=== PATIENT | female | born 1990 | race Caucasian/White ===

== ENCOUNTER → 2022-04-21 | Outpatient (CLI) | payer OTHER | END | disposition home or self-care (01) | LOC: LAB 11:52 → LAB SHORT 11:52 | DX: O09.893 Supervision of other high risk pregnancies, third trimester (principal) | CPT/HCPCS: 87081; 87150 ==

== ENCOUNTER 2022-05-13 22:47 | Inpatient (IN) | payer OTHER ==
[~2022-05-13] VITALS: Ht 167.6 cm; Wt 97.3 kg
[2022-05-14] MEDS ORDERED: PRENATAL TABLE1 EAC2 (01:20)
[2022-05-14 01:57] LABS: BASOPHILS ABSOLUTE AUTO 0.06 K/mm3 (0.00-0.23); BASOPHILS PERCENT AUTO 0 % (0-2); EOSINOPHILS ABSOLUTE AUTO 0.04 K/mm3 (0.00-0.68); EOSINOPHILS PERCENT AUTO 0 % (0-6); Hematocrit 36.8 % (33.0-51.0); Hemoglobin 13.1 g/dL (11.5-16.0); IMMATURE GRAN ABSOLUTE AUTO 0.21 K/mm3 (0.00-0.10); IMMATURE GRAN PERCENT AUTO 1 % (0-1); LYMPHOCYTES ABSOLUTE AUTO 2.72 K/mm3 (0.84-5.20); LYMPHOCYTES PERCENT AUTO 15 % (21-46); MONOCYTES ABSOLUTE AUTO 0.99 K/mm3 (0.16-1.47); MONOCYTES PERCENT AUTO 5 % (4-13); Mean Corpuscular HGB 32.8 pg (26.0-34.0); Mean Corpuscular HGB Conc 35.6 g/dL (31.5-36.5); Mean Corpuscular Volume 92 fL (80-100); Mean Platelet Volume 11.8 fL (9.1-12.4); NEUTROPHILS ABSOLUTE AUTO 14.64 K/mm3 (1.96-9.15); NEUTROPHILS PERCENT AUTO 79 % (41-73); Platelet Count 247 K/mm3 (150-400); RDW Coefficient Variation 12.6 % (11.7-14.2); RDW Standard Deviation 42.4 fL (35.1-46.3); White Blood Cell Count 18.66 K/mm3 (4.00-11.30)
--- NOTE | 2022-05-14 07:30 | NUR ---
OFFERED PT TORDOL FOR PAIN, IN REPORTS WAS TOLD AN ORDER FOR TORDAL WAS PUT IN AND PT WANTED IT, PT REPORTS SHE HAS NO PAIN AND DIDNT WANT THE TORDOL, RETURNED IT. PT IS AWARE SHE CAN HAVE IT ANYTIME SHE WANTS IT
--- NOTE | 2022-05-14 07:55 | NUR ---
UP SHOWER, VOIDED IN SHOWER, PAD CHANGE, HUBERT BOTTLE INSTRUCTIONS GIVEN, UP AMB IN ROOM WITH NO PROBLEMS
--- NOTE | 2022-05-15 09:06 | NUR ---
ready to dc home, dc instructions done, ppfu made, waiting for peds to make rounds, pt is excited to go home and show baby off to big brother
== END 2022-05-15 10:43 | disposition home or self-care (01) | DRG 807 ==
LOC: OBS 22:47 → BC 22:48 → OBS 05-14 01:11 → BC 05-14 01:12
PROVIDERS: ADMIT Family Medicine
PROC: 10D07Z6 Extraction of Products of Conception, Vacuum, Via Natural or Artificial Opening (ICD-10-PCS; principal; 2022-05-14)
PROC: 00HU33Z Insertion of Infusion Device into Spinal Canal, Percutaneous Approach (ICD-10-PCS; 2022-05-14)
PROC: 3E0R3BZ Introduction of Anesthetic Agent into Spinal Canal, Percutaneous Approach (ICD-10-PCS; 2022-05-14)
DX: O99.324 Drug use complicating childbirth (principal); Z37.0 Single live birth; Z67.10 Type A blood, Rh positive; F12.90 Cannabis use, unspecified, uncomplicated; Z87.891 Personal history of nicotine dependence; O76 Abnormality in fetal heart rate and rhythm complicating labor and delivery; Z3A.39 39 weeks gestation of pregnancy
CPT/HCPCS: 59025; 81003; 85025; 86850; 86900; 86901; 87210; A9270; J1885; J2590; J3010; J7120